=== PATIENT | male | born 1980 | race Caucasian/White ===

== ENCOUNTER 2023-06-26 11:01 | Day surgery (SDC) | payer BC ==
[~2023-06-26 11:01] MED LIST: Lactated Ringers 1,000 ML IV SCH; Sodium Chloride 0.9% 10 ML Syringe FLUSH PRN; Sodium Chloride 0.9% 2.5 ML Syringe FLUSH PRN; Sodium Chloride 0.9% 20 ML SDV IV PRN
[2023-06-26] MEDS ORDERED: Bupivacaine 0.5% 30 ML SDV ONE (12:15)
[2023-06-26] MEDS ORDERED: Lidocaine 1% 20 ML MDV ONE (12:15)
[2023-06-26] MEDS ORDERED: Metoclopramide 10 MG/2 ML SDV IVPUSH PRN (12:17)
[2023-06-26] MEDS ORDERED: Morphine 2 MG/ML SYRINGE IVPUSH PRN (12:17)
[2023-06-26] MEDS ORDERED: Ondansetron 4 MG/2 ML SDV IVPUSH PRN (12:17)
[2023-06-26] MEDS ORDERED: Albuterol 0.083% 2.5 MG/3 ML Neb Soln NEB PRN (12:17)
[2023-06-26] MEDS ORDERED: HYDROmorphone 1 MG/ML Syringe IVPUSH PRN (12:17)
[2023-06-26] MEDS ORDERED: Naloxone 0.4 MG/ML SDV IVPUSH PRN (12:17)
[2023-06-26] MEDS ORDERED: fentaNYL 50 MCG/ML SDV IVPUSH PRN (12:17)
[2023-06-26] MEDS ORDERED: droPERidol 5 MG/2 ML SDV IVPUSH PRN (12:17)
[2023-06-26] MEDS ORDERED: Lidocaine 1% 5 ML VIAL ONE (12:21)
[2023-06-26] MEDS ORDERED: Propofol 200 MG/20 ML SDV ONE (12:21)
[2023-06-26] MEDS ORDERED: fentaNYL 100 MCG/2 ML SDV ONE (12:21)
[2023-06-26] MEDS ORDERED: ceFAZolin 1 GM Vial ONE (12:44)
[2023-06-26] MEDS ORDERED: ceFAZolin 2 GM in Sodium Chloride 0.9% 50 ML IV ONE (13:02)
[2023-06-26] MEDS ORDERED: propofoL 50 ML ONE (13:07)
[2023-06-26] MEDS ORDERED: Ondansetron 4 MG/2 ML SDV ONE (13:12)
[2023-06-26] MEDS ORDERED: Ketorolac 30 MG/ML SDV ONE (13:12)
[2023-06-26] MEDS ORDERED: Dexamethasone 4 MG/ML 5 ML MDV ONE (13:12)
== END 2023-06-26 15:25 | disposition home or self-care (01) ==
LOC: MW.SDS 11:01
PROVIDERS: ATTEND Surgery
DX: D17.1 Benign lipomatous neoplasm of skin and subcutaneous tissue of trunk (principal); R22.2 Localized swelling, mass and lump, trunk; E78.00 Pure hypercholesterolemia, unspecified; F17.210 Nicotine dependence, cigarettes, uncomplicated; E66.9 Obesity, unspecified; Z68.41 Body mass index [BMI] 40.0-44.9, adult; Z79.899 Other long term (current) drug therapy
CPT/HCPCS: 11406; J0131; J0690; J1100; J1885; J2405; J2704; J3010; J3490; J7120; 00300